=== PATIENT | male | born 2000 | race African-American/Black ===

== ENCOUNTER 2022-01-11 16:32 | Emergency (ER) | payer BC ==
[~2022-01-11] VITALS: Ht 182.9 cm; Wt 95.3 kg
--- NOTE | 2022-01-11 19:05 | NUR ---
Pt left ER w/o being seen by ER MD.
[2022-01-12] MEDS ORDERED: FAMO-284 PO (10:37)
[2022-01-12] MEDS ORDERED: MAG355OR21 PO (10:37)
== END 2022-01-11 19:07 | disposition left against medical advice (07) ==
LOC: ER 16:34
DX: Z53.21 Procedure and treatment not carried out due to patient leaving prior to being seen by health care provider (principal)

== ENCOUNTER 2022-01-12 06:03 | Emergency (ER) | payer BC, OTHER ==
[~2022-01-12] VITALS: Ht 182.9 cm; Wt 95.3 kg
[2022-01-12] MEDS ORDERED: FAMOTIDINE 20 MG TABLET ONE (06:58)
[2022-01-12] MEDS ORDERED: FAMOTIDINE 20 MG TABLET PO ONE (07:00)
--- NOTE | 2022-01-12 07:56 | NUR ---
PATIENT COMPLAINS OF RIGHT ABDOMINAL PAIN SHARP 4/10. PATIENT LABS BEING DRAWN AT THIS TIME. VITAL SIGNS TAKEN.
[2022-01-12 08:07] LABS: HEMATOCRIT 40.1 % (36.7-47.1); MEAN CORPUSCULAR HEMOGLOBIN 29.4 uug (23.8-33.4); MEAN CORPUSCULAR VOLUME 85.7 fL (73.0-96.2); PLATELET COUNT (AUTO) 234 K/uL (152-348)
[2022-01-12 08:28] LABS: POTASSIUM 4.7 mmol/L (3.5-5.1)
[2022-01-12 08:34] LABS: BILIRUBIN,TOTAL 1.1 mg/dL (0.2-1.0); TOTAL PROTEIN, SERUM 7.6 g/dL (6.4-8.2)
[2022-01-12] MEDS ORDERED: MAG HYDROX/AL HYDROX/SIMETH 30 ML LIQUID UDC PO ONE (09:30)
[2022-01-12] MEDS ORDERED: MAG HYDROX/AL HYDROX/SIMETH 30 ML LIQUID UDC ONE (09:37)
--- NOTE | 2022-01-12 10:32 | NUR ---
Er physician reviewing results with patient. matt review discharge orders with patient
[2022-01-12] MEDS ORDERED: MAG355OR21 PO (10:37)
[2022-01-12] MEDS ORDERED: FAMO-284 PO (10:37)
--- NOTE | 2022-01-12 10:42 | NUR ---
review discharge paperwork with patient and RX.
[2022-01-14] MEDS ORDERED: SWABABLE VALVE TRANSFER SET EA MC ONE (19:24)
[2022-01-14] MEDS ORDERED: IOHEXOL 300MG/ML 100 ML INFUS..BTL ONE (19:24)
[2022-01-14] MEDS ORDERED: IV NORMAL SALINE 250 ML IV ONE (19:24)
== END 2022-01-12 10:44 | disposition home or self-care (01) ==
LOC: ER 06:17
DX: R10.11 Right upper quadrant pain (principal); R10.13 Epigastric pain
CPT/HCPCS: 36415; 76705; 83690; 85025; A4663; Q9967

== ENCOUNTER 2022-01-14 18:07 | Emergency (ER) | payer OTHER ==
[~2022-01-14] VITALS: Ht 182.9 cm; Wt 95.3 kg
[~2022-01-14 18:07] MED LIST: FAMO-284 PO; MAG355OR21 PO
--- NOTE | 2022-01-14 19:10 | NUR ---
DR TREJO AT BEDSIDE, MSE IN PROGRESS
[2022-01-14] MEDS ORDERED: HYDROMORPHONE 1 MG/1 ML DISP.SYRIN IV ONE (19:15)
[2022-01-14] MEDS ORDERED: ONDANSETRON 4 MG/2 ML VIAL IV ONE (19:15)
[2022-01-14] MEDS ORDERED: IV NORMAL SALINE 1000 ML BAG IV ONE (19:15)
[2022-01-14] MEDS ORDERED: ONDANSETRON 4 MG/2 ML VIAL ONE (19:17)
[2022-01-14] MEDS ORDERED: HYDROMORPHONE 1 MG/1 ML DISP.SYRIN ONE (19:18)
[2022-01-14 19:19] LABS: HEMATOCRIT 41.9 % (36.7-47.1); MEAN CORPUSCULAR HEMOGLOBIN 28.4 uug (23.8-33.4); MEAN CORPUSCULAR VOLUME 86.4 fL (73.0-96.2); PLATELET COUNT (AUTO) 255 K/uL (152-348)
--- NOTE | 2022-01-14 19:30 | NUR ---
Patient taken to CT
--- NOTE | 2022-01-14 19:43 | NUR ---
Patient is back from CT
[2022-01-14 19:45] LABS: CREATININE 1.2 mg/dL (0.6-1.3); POTASSIUM 4.2 mmol/L (3.5-5.1)
[2022-01-14 19:51] LABS: BILIRUBIN,DIRECT 0.1 mg/dL (0.0-0.2); BILIRUBIN,TOTAL 0.9 mg/dL (0.2-1.0); TOTAL PROTEIN, SERUM 8.1 g/dL (6.4-8.2)
--- NOTE | 2022-01-14 20:00 | NUR ---
Patient is a/ox4, NAD noted. Patient is able to walk with steady gait
[2022-01-14] MEDS ORDERED: PIPERACILLIN/TAZOBACTAM/D5W 50 ML IV ONE (20:11)
[2022-01-14] MEDS ORDERED: PIPERACILLIN SODIUM/TAZOBACTAM 3.375 G in IV DEXTROSE 5% 50 ML IV ONE (20:15)
[2022-01-14] MEDS ORDERED: AMOX-430 PO (20:20)
[2022-01-14] MEDS ORDERED: HYDR-4209 PO (20:20)
--- NOTE | 2022-01-14 20:37 | NUR ---
Patient discharged to home in stable condition. Written and verbal after care instructions given. Patient verbalizes understanding of instructions. Stressed follow up or return to ER for worsening s/s Patient is a/ox4, NAD noted. Patient is able to walk with steady gait.
[2022-01-14 21:03] VITALS: BP 137/63
== END 2022-01-14 20:30 | disposition home or self-care (01) ==
LOC: ER 18:07
DX: K52.9 Noninfective gastroenteritis and colitis, unspecified (principal); R03.0 Elevated blood-pressure reading, without diagnosis of hypertension
CPT/HCPCS: 99285; 74177; 96374; 96375; 96361; 80076; 80048; 83690; 85025; 85730; 36415; J2405; Q9967; J2543; J1170; J7040

== ENCOUNTER 2022-01-24 17:17 | Emergency (ER) | payer SELFPAY ==
[~2022-01-24] VITALS: Ht 182.9 cm; Wt 95.3 kg
[~2022-01-24 17:17] MED LIST changes: +AMOX-430 PO; +HYDR-4209 PO
--- NOTE | 2022-01-24 18:52 | NUR ---
Patient is still in the ER waiting room, calm, NAD, pending available ER [email or web address] time.
--- NOTE | 2022-01-24 18:59 | NUR ---
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
--- NOTE | 2022-01-24 20:00 | NUR ---
Patient waiting in waiting room with no distress noted. Vital signs re taken.
--- NOTE | 2022-01-24 23:25 | NUR ---
UNABLE TO BRING PATIENT BACK INTO ER DUE TO NO BEDS AVAILABLE AND A CODE BLUE WAS IN PROGRESS FOR 2HRS.
--- NOTE | 2022-01-24 23:30 | NUR ---
PATIENT WENT UP TO FOUNDRY [employer]OL[employer]'S WINDOW AND STATES "I DON'T WANT TO BE SEEN ANYMORE." PATIENT LEFT ER WITHOUT BEING SEEN BY ERMD.
== END 2022-01-24 23:30 | disposition left against medical advice (07) ==
LOC: ER 17:19
DX: Z53.21 Procedure and treatment not carried out due to patient leaving prior to being seen by health care provider (principal)

== ENCOUNTER 2022-02-11 12:39 | Emergency (ER) | payer OTHER ==
[~2022-02-11] VITALS: Ht 182.9 cm; Wt 95.3 kg
[~2022-02-11 12:39] MED LIST changes: +BISA-79 PO; +BISA10SU61 RC; +MAGN296S70 PO
--- NOTE | 2022-02-11 14:25 | NUR ---
Pt arrived with c/o of L Flank Pain x 2 days. Denies n/v, not in acute distress. Denies dysuria and hematuria. Urine sample taken per MD for UA, clear and naina in color. No facial grimacing, nor guarding of the site is manifested. ERMD is in room for MSE.
--- NOTE | 2022-02-11 15:34 | NUR ---
DR WELCH AT BEDSIDE FOR EVALUATION.
--- NOTE | 2022-02-11 16:06 | NUR ---
URINE SPECIMEN SENT TO LAB.
[2022-02-11 16:08] LABS: *BILIRUBIN,URIN NEGATIVE (NEGATIVE); *BLOOD, URINE NEGATIVE (NEGATIVE); *CLARITY,URINE CLEAR (CLEAR); *COLOR,URINE LIGHT YELLOW (YELLOW); *KETONES,URINE NEGATIVE (NEGATIVE); *UROBILINOGEN,URINE 0.2 E.U./dl (NORMAL); LEUKOCYTE ESTERASE ,URINE NEGATIVE (NEGATIVE); NITRITE, URINE NEGATIVE (NEGATIVE); UGLUCOSE NEGATIVE (NEGATIVE)
[2022-02-11 16:10] LABS: CREATININE 1.1 mg/dL (0.6-1.3); POTASSIUM 4.2 mmol/L (3.5-5.1)
--- NOTE | 2022-02-11 16:45 | NUR ---
Pt discharged to home in stable condition. Written and verbal after care instructions given. Pt verbalizes understanding of instructions. Stressed follow up or return to ER for worsening s/s.
[2022-02-11 17:21] VITALS: BP 125/86
== END 2022-02-11 16:45 | disposition home or self-care (01) ==
LOC: ER 12:39
DX: R10.12 Left upper quadrant pain (principal); R03.0 Elevated blood-pressure reading, without diagnosis of hypertension; Z87.19 Personal history of other diseases of the digestive system
CPT/HCPCS: 36415; A4663